=== PATIENT | male | born 1990 | race American Indian/Alaskan Native ===

== ENCOUNTER 2017-11-03 09:08 | Emergency (ER) | payer SELFPAY ==
[2017-11-03 09:31] VITALS: BP 129/72
[2017-11-03] MEDS ORDERED: FUL-GLO OP ONE (10:42)
[2017-11-03] MEDS ORDERED: TORADOL IV ONE (11:18)
[2017-11-03] MEDS ORDERED: REGLAN IV ONE (11:18)
--- NOTE | 2017-11-03 11:18 | Emergency Department Report ---
ED Eye Problem HPI - General Chief complaint: Eye Problems Stated complaint: EYE PAIN Time Seen by Provider: 11/03/17 10:27 Source: patient Mode of arrival: Ambulatory Limitations: No Limitations - History of Present Illness Initial comments: 27-year-old male past medical history migraines presents with complaint of left- sided migraine headache. Patient states that he has some left eye discomfort as well. Denies any nausea vomiting fever or chills. Patient is awake alert and oriented 3 not in acute distress. Patient states that he is in a roe to leave because he has somewhere to be but that these symptoms are consistent with previous history of migraine headache. Patient states he has no neck rigidity no fever and no nausea. Denies any chest pain abdominal pain or palpitations. Fully lucid and ambulatory on exam. Denies any mucopurulent drainage from left eye or any injury or direct trauma to left eye or his head. Does complain of some left eye irritation MD chief complaint: eye pain Onset/Timin -: days(s) Location: left eye Eye Symptoms: redness Severity: mild Associated Symptoms: none - Related Data Previous Rx's Medication Instructions Recorded Last Taken Type HYDROcodone/APAP 5-325 [[place] 1 each PO Q8H PRN #15 tablet 06/07/15 Unknown Rx 5/325] Sulfamethoxazole/Trimethoprim 1 each PO BID #20 tablet 06/07/15 Unknown Rx [Bactrim DS TAB] Metoclopramide [Reglan] 10 mg PO TID PRN #10 tab 11/03/17 Unknown Rx Naphazoline HCl/Pheniramine 1 drop OP Q6H PRN #1 drops 11/03/17 Unknown Rx [Naphcon-A Eye Drops] Naproxen 500 mg PO BID PRN #30 tablet 11/03/17 Unknown Rx Allergies Allergy/AdvReac Type Severity Reaction Status Date / Time No Known Allergies Allergy Verified 06/07/15 19:46 ED Review of Systems ROS: Stated complaint: EYE PAIN Other details as noted in HPI Constitutional: denies: chills, fever Eyes: as per HPI. denies: eye pain, eye discharge, vision change ENT: denies: ear pain, throat pain Respiratory: denies: cough, shortness of breath, wheezing Cardiovascular: denies: chest pain, palpitations Endocrine: no symptoms reported Gastrointestinal: denies: abdominal pain, nausea, diarrhea Genitourinary: denies: urgency, dysuria Musculoskeletal: denies: back pain, joint swelling, arthralgia Skin: denies: rash, lesions Neurological: headache. denies: weakness, paresthesias Psychiatric: denies: anxiety, depression Hematological/Lymphatic: denies: easy bleeding, easy bruising ED Past Medical Hx - Past Medical History Previous Medical History?: No - Surgical History Past Surgical History?: No - Social History Smoking Status: Current Every Day Smoker Substance Use Type: Alcohol, Marijuana - Medications Home Medications: Home Medications Medication Instructions Recorded Confirmed Last Taken Type HYDROcodone/APAP 5-325 [[place] 1 each PO Q8H PRN #15 tablet 06/07/15 Unknown Rx 5/325] Sulfamethoxazole/Trimethoprim 1 each PO BID #20 tablet 06/07/15 Unknown Rx [Bactrim DS TAB] Metoclopramide [Reglan] 10 mg PO TID PRN #10 tab 11/03/17 Unknown Rx Naphazoline HCl/Pheniramine 1 drop OP Q6H PRN #1 drops 11/03/17 Unknown Rx [Naphcon-A Eye Drops] Naproxen 500 mg PO BID PRN #30 tablet 11/03/17 Unknown Rx ED Physical Exam - General Limitations: No Limitations General appearance: alert, in no apparent distress - Head Head exam: Present: atraumatic, normocephalic - Eye Eye exam: Present: normal appearance, PERRL, EOMI, conjunctival injection (some mild left conjunctival injection) - ENT ENT exam: Present: mucous membranes moist - Neck Neck exam: Present: normal inspection, full ROM - Respiratory Respiratory exam: Present: normal lung sounds bilaterally. Absent: respiratory distress - Cardiovascular Cardiovascular Exam: Present: regular rate, normal rhythm. Absent: systolic murmur, diastolic murmur, rubs, gallop - GI/Abdominal GI/Abdominal exam: Present: soft, normal bowel sounds - Rectal Rectal exam: Present: deferred - Extremities Exam Extremities exam: Present: normal inspection - Back Exam Back exam: Present: normal inspection - Neurological Exam Neurological exam: Present: alert, oriented X3, CN II-XII intact, normal gait - Expanded Neurological Exam Expanded Patient oriented to: Present: person, place, time Cranial nerves: EOM's Intact: Normal, Facial Sensation: Normal Sensory exam: Upper Extremity Light Touch: Normal, Lower Extremity Light Touch: Normal Motor strength exam: RUE: 5, LUE: 5, RLE: 5, LLE: 5 Best Eye Response ([place]): (4) open spontaneously Best Motor Response ([place]): (6) obeys commands Best Verbal Response ([place]): (5) oriented [place] Total: 15 - Psychiatric Psychiatric exam: Present: normal affect, normal mood - Skin Skin exam: Present: warm, dry, intact, normal color. Absent: rash ED Course Vital Signs 11/03/17 09:29 Temperature 98 F Pulse Rate 79 Respiratory 20 Rate Blood Pressure 129/72 O2 Sat by Pulse 100 Oximetry ED Medical Decision Making - Medical Decision Making A/P: Migraine headache 1-naproxen and Reglan when necessary. Patient refused any IV medicines 2-follow-up with primary care 3-Cranial nerves 2, 3, 4, 5, 6, 7, 8,10, 11, 12 intact on clinical exam, patient is fully lucid awake alert and oriented 3 conversant. Denies any upper or lower extremity paresthesias and has 5/5 strength in bilateral upper and lower extremities on clinical exam. 4- pt independently ambulatory without assistance upon discharge Critical care attestation.: If time is entered above; I have spent that time in minutes in the direct care of this critically ill patient, excluding procedure time. ED Disposition Clinical Impression: Migraine headache Qualifiers: Migraine type: unspecified Status migrainosus presence: without status migrainosus Intractability: not intractable Qualified Code(s): G43.909 - Migraine, unspecified, not intractable, without status migrainosus Disposition: - TO HOME OR SELFCARE Is pt being admited?: No Does the pt Need Aspirin: No Condition: Stable Instructions: Migraine Headache (ED), Acute Headache (ED) Prescriptions: Metoclopramide [Reglan] 10 mg PO TID PRN #10 tab PRN Reason: Headache Naphazoline HCl/Pheniramine [Naphcon-A Eye Drops] 1 drop OP Q6H PRN #1 drops PRN Reason: Dry Eye(S) Naproxen 500 mg PO BID PRN #30 tablet PRN Reason: Pain Referrals: PRIMARY CARE,MD [Primary Care Provider] - 3-5 Days [facility] [Outside] - 3-5 Days [facility] [Outside] - 3-5 Days Time of Disposition: 11:28
== END 2017-11-03 11:50 | disposition home or self-care (01) ==
LOC: ED 09:08
DX: G43.909 Migraine, unspecified, not intractable, without status migrainosus (principal); F17.200 Nicotine dependence, unspecified, uncomplicated; F12.10 Cannabis abuse, uncomplicated
CPT/HCPCS: 99282